=== PATIENT | female | born 1995 | race Caucasian/White ===

== ENCOUNTER 2018-08-24 05:50 | Emergency (ER) | payer BC ==
[~2018-08-24] VITALS: Ht 165.1 cm; Wt 56.7 kg
--- NOTE | 2018-08-24 06:00 | NUR ---
ED Nurse Note: Pt walked into ER stating that she has been vomiiting since 2AM (5 or six episodes of vomiting). vomiting is accompained with nausea and diahhrea. pt states her vomit is white color. pt states that her symptoms could have been the sushi she ate for dinner.
[2018-08-24] MEDS ORDERED: SYNTHROID125 MCG ORAL (06:01)
[2018-08-24 06:04] VITALS: BP 112/63
--- NOTE | 2018-08-24 06:15 | NUR ---
ED Nurse Note: Urine and blood sample sent to Lab.
[2018-08-24] MEDS ORDERED: ZOFRAN4 MG ORAL (06:19)
--- NOTE | 2018-08-24 06:20 | Emergency Room Report ---
History of Present Illness General Chief Complaint: Nausea, Vomiting, and Diarrhea Source: Patient Present Illness HPI Is a 22-year-old female with no past medical history. She presents with chief complaint of abdominal pain with nausea vomiting and diarrhea. Onset 3 hours ago. Profuse watery diarrhea. Vomiting is nonbloody nonbilious. Pain is crampy in nature. She thought she may have food poisoning since she worsens she take out. Denies any other complaint. Pain is crampy in nature. 7 out of 10. Allergies: Coded Allergies: SULFA (SULFONAMIDE ANTIBIOTICS) (Verified Allergy, Unknown, 08/24/18) Patient History Past Medical History: none, see triage record, old chart reviewed Past Surgical History: none Pertinent Family History: none Social History: Denies: smoking Last Menstrual Period: one month ago Now: No Immunizations: other Reviewed Nursing Documentation: PMH: Agreed; PSxH: Agreed Nursing Documentation-PMH Past Medical History: No Stated History Hx Cardiac Problems: Yes - hypothyroidism Review of Systems Eye: Denies: eye pain, blurred vision ENT: Denies: ear pain, nose congestion, throat swelling Respiratory: Denies: cough, shortness of breath Cardiovascular: Denies: chest pain, palpitations Gastrointestinal: Reports: abdominal pain, diarrhea, nausea, vomiting Musculoskeletal: Denies: back pain, joint pain Skin: Denies: rash Neurological: Denies: headache, numbness Endocrine: Denies: increased thirst, increased urine Hematologic/Lymphatic: Denies: easy bruising All Other Systems: negative except mentioned in HPI Physical Exam Vital Signs Date Time Temp Pulse Resp B/P (MAP) Pulse Ox O2 Delivery O2 Flow Rate FiO2 08/24/18 05:54 97.3 100 15 112/63 99 Room Air vitals normal Sp02 EP Interpretation: reviewed, normal General Appearance: well appearing, no apparent distress, alert Head: normocephalic, atraumatic Eyes: bilateral eye PERRL, bilateral eye EOMI ENT: hearing grossly normal, normal pharynx Neck: full range of motion, supple, no meningismus Respiratory: chest non-tender, lungs clear, normal breath sounds Cardiovascular #1: regular rate, rhythm, no murmur Gastrointestinal: non tender, no mass, no organomegaly, no bruit, non-distended , decreased bowel sounds Musculoskeletal: back normal, gait/station normal, normal range of motion Psychiatric: mood/affect normal Skin: warm/dry Medical Decision Making Diagnostic Impression: Primary Impression: Nausea, vomiting, and diarrhea ER Course Patient with nausea vomiting and diarrhea. Most likely viral gastroenteritis. No evidence of acute abdomen. No localizing pain. Patient felt better after IV fluid and Zofran. We'll discharge home. Last Vital Signs Date Time Temp Pulse Resp B/P (MAP) Pulse Ox O2 Delivery O2 Flow Rate FiO2 08/24/18 06:04 97.3 100 15 112/63 99 Room Air Status: improved Disposition: HOME, SELF-CARE Condition: Stable Scripts Ondansetron (Zofran) 4 Mg Tablet 4 MG ORAL Q6H PRN for Nausea & Vomiting, #10 TAB 0 Refills Prov: Roberto Espana MD 08/24/18 Additional Instructions: Increase fluids. Follow-up with your DrMarina in 2-3 days if not better. Return sooner if having fever, increasing pain, pain localizing to the right lower quadrant. Roberto Espana MD Aug 24, 2018 06:20
[2018-08-24] MEDS ORDERED: Ketorolac 30mg Inj IV ONE (06:30)
[2018-08-24 06:33] LABS: HEMATOCRIT 41.7 % (37.0-47.0); HEMOGLOBIN 14.1 G/DL (12.0-16.0); MEAN CORPUSCULAR VOLUME 84 FL (80-99); PLATELET COUNT 216 K/UL (150-450); RED BLOOD COUNT 4.98 M/UL (4.20-5.40); WHITE BLOOD COUNT 14.1 K/UL (4.8-10.8)
[2018-08-24 06:35] LABS: APPEARANCE,URINE CLOUDY; BILIRUBIN, URINE 1+ (NEGATIVE); GLUCOSE, URINE (UA) NEGATIVE (NEGATIVE); KETONES,URINE 3+ (NEGATIVE); PH,URINE 5 (4.5-8.0); PROTEIN,URINE 2+ (NEGATIVE); UROBILINOGEN,URINE 1 MG/DL (0.0-1.0)
[2018-08-24 06:52] LABS: LEUKOCYTE ESTERASE ,URINE 2+ (NEGATIVE); NITRITE,URINE NEGATIVE (NEGATIVE)
[2018-08-24 06:54] LABS: ANION GAP 12 mmol/L (5-15); BLOOD UREA NITROGEN 19 mg/dL (7-18); CALCIUM 9.2 MG/DL (8.5-10.1); CARBON DIOXIDE 24 MMOL/L (21-32); CHLORIDE 104 MMOL/L (98-107); CREATININE 0.9 MG/DL (0.55-1.30); POTASSIUM 3.6 MMOL/L (3.5-5.1); SODIUM 140 MMOL/L (136-145)
[2018-08-24 06:55] LABS: COLOR,URINE YELLOW
--- NOTE | 2018-08-24 07:03 | NUR ---
HAND-OFF: Report given to Jack CALLES.
--- NOTE | 2018-08-24 07:20 | NUR ---
ED Nurse Note: PT LAYING PEACEFULLY IN BED IN NAD. AOX4. PRESCRIPTIONS AND DISCHARGE PAPERWORK EXPLAINED TO PT. PT VERBALIZES UNDERSTANDING AND DENIES ANY QUESTIONS AT THIS TIME. PRESCRIPTIONS AND DISCHARGE PAPERWORK GIVEN TO PT, IV AND ID WRISTBAND REMOVED. PT WALKED OUT OF ER WITH STEADY GAIT AND ALL BELONGINGS.
[2018-08-24 07:24] VITALS: BP 110/61
== END 2018-08-24 07:20 | disposition home or self-care (01) ==
LOC: EMR 06:18
DX: R11.2 Nausea with vomiting, unspecified (principal); R19.7 Diarrhea, unspecified; Z88.2 Allergy status to sulfonamides; E03.9 Hypothyroidism, unspecified
CPT/HCPCS: 36415; 80048; 81003; 81025; 85007; 85025; 96361; 96374; 96375; 99284; J1885; J2405